=== PATIENT | male | born 1970 | race Two or more races ===

== ENCOUNTER 2019-07-18 10:08 | Emergency (ER) | payer OTHER, MEDICAID ==
[~2019-07-18] VITALS: Ht 180.3 cm; Wt 86.2 kg
[2019-07-18] MEDS ORDERED: IBUPROFEN 800 MG TAB PO ONE (10:30)
[2019-07-18] MEDS ORDERED: HYDROmorphone HCL 2 MG/ML VL IV ONE (10:45)
[2019-07-18] MEDS ORDERED: ONDANSETRON HCL 4 MG/2 ML VIAL IV ONE (10:45)
[2019-07-18] MEDS ORDERED: MORPHINE SULFATE 4 MG/ML SYR/VIAL IV ONE (10:45)
[2019-07-18] MEDS ORDERED: ETOMIDATE (2MG/ML) 20ML VIAL IV ONE ×2 (11:15→11:36)
[2019-07-18] MEDS ORDERED: SODIUM CHLORIDE 0.9% 1,000 ML IV ONE (11:15)
[2019-07-18 12:20] VITALS: BP 119/70
== END 2019-07-18 13:21 | disposition home or self-care (01) ==
LOC: ER 10:08
DX: S43.005A Unspecified dislocation of left shoulder joint, initial encounter (principal); M54.2 Cervicalgia; V43.52XA Car driver injured in collision with other type car in traffic accident, initial encounter; Y93.89 Activity, other specified; Y92.488 Other paved roadways as the place of occurrence of the external cause; Y99.8 Other external cause status
CPT/HCPCS: 23650; 70450; 72125; 73020; 73030; 99152; 99285; J7030